=== PATIENT | female | born 1995 | race Caucasian/White ===

== ENCOUNTER 2025-01-20 07:59 | Inpatient (IN) ==
[2025-01-20] MEDS ORDERED: LABETALOL 20 MG/4 ML SYRINGE IVP PRN ×3 (08:07)
[2025-01-20] MEDS ORDERED: CARBOPROST TROMETHAMINE 250 MCG/ML VIAL IM PRN (08:07)
[2025-01-20] MEDS ORDERED: FAMOTIDINE 20 MG/2 ML VIAL IVP PRN (08:07)
[2025-01-20] MEDS ORDERED: OXYTOCIN 10 UNIT/ML VIAL IM PRN (08:07)
[2025-01-20] MEDS ORDERED: hydrALAZINE INJ 20 MG/ML VIAL IVP PRN (08:07)
[2025-01-20] MEDS ORDERED: SODIUM CHLORIDE FLUSH 0.9% 10 ML SYRINGE IVP PRN (08:07)
[2025-01-20] MEDS ORDERED: DOCUSATE SODIUM 100 MG CAPSULE PO PRN (08:07)
[2025-01-20] MEDS ORDERED: ONDANSETRON ODT 4 MG TABLET PO PRN (08:07)
[2025-01-20] MEDS ORDERED: ACETAMINOPHEN 500 MG TABLET PO PRN ×2 (08:07)
[2025-01-20] MEDS ORDERED: fentaNYL 100 MCG/2 ML VIAL IVP PRN (08:07)
[2025-01-20] MEDS ORDERED: TERBUTALINE 1 MG/ML VIAL SUBQ PRN (08:07)
[2025-01-20] MEDS ORDERED: METOCLOPRAMIDE 10 MG TABLET PO PRN (08:07)
[2025-01-20] MEDS ORDERED: METHYLERGONOVINE 0.2 MG/ML VIAL IM PRN (08:07)
[2025-01-20] MEDS ORDERED: CALCIUM CARBONATE CHEW 500 MG TABLET PO PRN (08:07)
--- NOTE | 2025-01-20 08:15 | HISTORY & PHYSICAL EXAMINATION ---
Admit History Smoking Status: Never smoker Other Maternal History Other Maternal History: HPI: This 29 yo @ 40+2 weeks by LMP and confirmed by 12+1 week ultrasound. Here today for term induction of labor at 40+2 weeks gestation. /-3 in clinic yesterday. Has had membrane sweep x2 without onset Reviewed that risks of induction and labor to include but are not limited to section, prolonged labor, vacuum extraction, episotomy, hemorrhage, and additional risks exist re: prolonged second stage related to extraction. Reviewed back up OBGYN is available for consultations, emergency interventions and transfer of care if indicted. She has been a patient of [facility] care for the duration of her which has remained uncomplicated. ROS: No Headache, visual changes or right upper quadrant abdominal pain. Denies significant N/V. Denies urinary urgency or dysuria. All other symptoms reviewed and were negative except per HPI. In the event of an emergency, accepts the administration of blood products. Recent BP: 134/72 Labs: H&H 12.9/37.8 PLT 158, serum Creatinine 0.5, AST 21, ALT 13 Last u/s EFW: 38% by anatomy scan Total maternal weight gain: 45# Added to OB Panel list: Yes Plans to attend group care: YES In the event of an emergency, ACCEPTS the administration of blood products - [place] sex Medical Hx: no significant Surgical Hx: shoulder surgery Social Hx: Monogamous with male partner Jono. Stopped drinking alcohol due to . Denies current use of tobacco, marijuana or other recreational drugs. Reports that she is safe in current relationship. Family Hx: Denies family history of congenital anomalies, Cystic Fibrosis or chromosomal abnormalities. Allergies: NKDA Medications: PNV LMP:04/13/2024 FATIMAH by LMP: 01/18/2025 U/S: @ 12.1wks c/w LMP dating (FATIMAH by U/S 01/20/2025) Final FATIMAH: 01/18/2025 Pre- weight: 213lb BMI: 30.6 Blood type: A NEG Rhogam given 10/26/2024 Antibody screen: Negative CBC: PLT 202 HCT 38.2 HGB 12.8 Rubella: Immune VZV: Immune HBsAg: Negative HepC: NR RPR/AB-EIA: NR HIV: NR Flu: 12/23/2024 COVID: declines PAP: 05/2023- normal per pt report GC/CT: 07/07/2024 Negative HSV: denies in self and partner Genetic Testing: QUAD- Negative FAS: WNL with exception of thickened nuchal fold (genetic screening negative) Placenta: Posterior Cord: 3VC HUMZA: 15.7cm EFW: 415g; 38%tile 50gm GCT: 68 TDAP:10/21 Breast Pump:10/21 2nd antibody screen:10/19-negative RHOGAM: 10/26/2024 3rd trimester H/H/PLT- 13.1/39.3/177 3rd trimester RPR- non reactive RSV 12/23/2024 GBS: POSITIVE Delivery plan: Desires unmedicated delivery, okay with saline lock, planning contraception Physical exam: Normocephalic, atraumatic Heart RRR w/o M/G/R Lungs CTAB Abdomen gravid, soft, nontender. EFW 3800 FHR baseline 135, moderate variability, + accelerations, no decelerations No regular contractions, soft uterine resting tone SVE 2-3/70/-3 01/20/2025, vertex, membranes intact Bilateral LE's no edema Mood is good. Assessment: 29 yo @ 40+2 weeks gestation by 12+1 wk U/S Term induction of labor FHR 135 Cat I GBS POSITIVE VTX by BSUS since 34 weeks Plan: Admit to [facility] for preinduction cervical ripening with induction of labor to follow Continuous monitoring, intermittent heart rate auscultation if criteria met. Will plan to start with misoprostol 50mcg BC q4 hours. Consider ROM 4 hours following initial administration of misoprostol Begin GBS prophalaxis (ampicillin) with ROM or onset of active labor Jacuzzi PRN. Nitrous oxide PRN. Epidural PRN Maternal Request. Anticipate . Meds/Allgy Home Medications Ambulatory Orders Medication Instructions Recorded Confirmed vits no.126-ferrous fum 1 tab PO DAILY 01/20/25 28 mg iron-folic acid 800 mcg tablet (Classic ) famotidine 20 mg tablet 20 mg PO DAILY PRN heartburn 01/20/25 01/20/25 Allergies Allergies Allergy/AdvReac Type Severity Reaction Status Date / Time No Known Drug Allergies Allergy Verified 01/20/25 09:45 [facility] Active Problems All Active Problems (Updated 01/20/25 @ 08:11 by ROBERTA Yu) Postmaturity , 40-42 weeks gestation (Acute) Normal in second trimester (Acute) Normal first confirmed (Acute) Encounter for other specified screening (Acute) Encounter for supervision of normal , unspecified, first trimester (Acute) Positive test (Acute) Surgical History Surgical History (Updated 06/23/24 @ 14:48 by Johnna Eli RN) H/O shoulder surgery 03/28/2018-Left labrum repair Social History Social History (Updated 11/13/24 @ 12:48 by ROBERTA Yu) Smoking Status: Never smoker Second hand tobacco smoke exposure: No Do you dip or chew tobacco?: No Do you vape?: No Living arrangement: At home Level: Independent ETOH Use: None Substance Use: denies use Are you sexually active?: Yes Occupation - Current: [employer] Service: Yes Dates of Service: Current Plan for Labor Plan For Labor I expect patient to be DC'd or transferred within 96 hours.: Yes Conclusion/Plan Lab Results 01/20/25 08:30 01/20/25 08:30
[2025-01-20 09:26] LABS: HCT - HEMATOCRIT 37.8 % (37.0-47.0); HGB - HEMOGLOBIN 12.9 g/dL (12.0-16.0); MEAN PLATELET VOLUME 9.5 fL (7.9-10.8); NRBC ABSOLUTE COUNT (AUTO) 0.00 x10^3/uL; NUCLEATED RED BLOOD CELLS AUTO 0.0 /100WBC; PLT - PLATELET COUNT 158 10^3/uL (130-450); RED CELL DISTRIBUTION WIDTH 13.0 % (12.0-15.0)
[2025-01-20 09:45] LABS: ALT ALANINE AMINOTRANSFERASE 13.0 IU/L (10-60); AST ASPARTATE AMINOTRANSFERASE 21.0 IU/L (10-42); BUN - BLOOD UREA NITROGEN 9.0 mg/dL (6-20); CARBON DIOXIDE - CO2 21.0 mmol/L (21-32); CREATININE 0.5 mg/dL (0.6-1.3); GFR - MDRD 148.0 (>89)
--- NOTE | 2025-01-20 12:25 | PHARMACY PROGRESS NOTE ---
Best Possible Medication History Admit Date and Time: 01/20/25 0808 Home Medications Medication Instructions Recorded Confirmed Type vits no.126-ferrous fum 1 tab PO DAILY 01/20/25 History 28 mg iron-folic acid 800 mcg tablet (Classic ) famotidine 20 mg tablet 20 mg PO DAILY PRN heartburn 01/20/25 01/20/25 History Processed by: Nursing (Patient's nurse kindly asked patient medication questions and preferred pharmacy) Medications reviewed in ED?: No Medication History completed: Yes Patient Interview: Completed Secondary Source(s): Insurance records [facility] Statement: As the person ultimately responsible for medication therapy, providers are able to order a medication from an existing home medication list in [facility] via the "Reconcile Routine" prior to Confirmation of that medication by academic support director. Such practice is discouraged except when the physician, in their clinical judgment, deems that a medical need exists for a medication without regard to previous use.
[2025-01-20] MEDS: LACTATED RINGERS 1,000 ML IV SCH (15:34)
[2025-01-20] MEDS: AMPICILLIN 2 GM in SODIUM CHLORIDE 0.9% MINIBAG 100 ML IV ONE (15:38)
[2025-01-20] MEDS: SODIUM CHLORIDE FLUSH 0.9% 10 ML SYRINGE IVP SCH (15:39)
--- NOTE | 2025-01-20 17:40 | PROVIDER PROGRESS NOTE ---
Subjective Subjective Subjective: S: In the tub with supportive who came prepared with swim trunks. Increasing discomfort with contractions. Breathing through contractions well. Tolerating position changes, coping well, understands situation after our discussions, feels well informed. O: FHR baseline 130, moderate variability, + accels, very intermittent variables. Overall reassuring with moderate variability maintained throughout. Contractions began to intensify following AROM at 1501. SVE 3.5/80/-2. Vertex. AROM @ 1501 today. Antibiotics started shortly after. S/p 2 doses 50mcg BC misoprostol A: 29yo @ 40+2wks gestation by LMP c/w 12wk U/S Elective IOL Overall FHR Category I and very reassuring tracing GBS positive Rh Neg P: Continue to monitor contractions and FHR. Now 4 hours following last dose of misoprostol. Continue q 4 hours ampicillin. SVE as indicated and prior to initiating pitocin. If contractions space out or seem to decrease in intensity, I have asked that the nursing team call me for a team discussion of pitocin augmentation. Continuous monitoring following 30 minute break from EFM. Epidural per maternal request. Encourage movement in room Anticipate . Current Medications Current Medications Current Medications: Current Medications Generic Name Dose Route Start Last Admin Trade Name Freq PRN Reason Stop Dose Admin Acetaminophen 1,000 mg 01/20/25 08:07 Acetaminophen 500 Mg Tablet PO Q8H PRN Mild Pain or Fever>38C(100.4F) Acetaminophen 1,000 mg 01/20/25 08:07 Acetaminophen 500 Mg Tablet PO Q8HR PRN Mild Pain or Fever>38C(100.4F) Calcium Carbonate/Glycine 1,000 mg 01/20/25 08:07 Calcium Carbonate Chew 500 Mg Tablet PO Q6HR PRN Heartburn Carboprost Tromethamine 250 mcg 01/20/25 08:07 Carboprost Tromethamine 250 Mcg/Ml Vial IM .ONCE PRN Hemorrhage Diphenhydramine HCl 25 mg 01/20/25 08:07 Diphenhydramine Inj 50 Mg/Ml Vial IVP Q6H PRN Allergy Symptoms Docusate Sodium 200 mg 01/20/25 08:07 Docusate Sodium 100 Mg Capsule PO BID PRN Constipation Famotidine 20 mg 01/20/25 08:07 Famotidine 20 Mg/2 Ml Vial IVP DAILY PRN acid reflux Famotidine 20 mg 10/29/25 15:20 Famotidine 20 Mg Tablet PO DAILY PRN Heartburn Fentanyl 50 mcg 01/20/25 08:07 Fentanyl 100 Mcg/2 Ml Vial IVP Q1H PRN Severe Pain (score 7-10) Hydralazine HCl 5 - 10 mg 01/20/25 08:07 Hydralazine Inj 20 Mg/Ml Vial IVP Q20M PRN SBP> or= 160 OR DBP> or= 110 Protocol Lactated Ringer's 500 mls @ 999 mls/hr 01/20/25 08:07 Lr IV PRN PRN PER PHYSICIAN ORDER Oxytocin/Sodium Chloride 500 mls @ 999 mls/hr 01/20/25 08:07 Pitocin/Sodium Chloride IV PRN PRN POST- HEMORR PREVENTION Protocol 999 MILLIUNIT/MIN Tranexamic Acid 1,000 mg in 100 mls @ 600 mls/hr 01/20/25 08:07 Tranexamic 1,000 Mg/100ml-Nacl IV Q30M PRN EBL >1200mL and within 3hr Lactated Ringer's 1,000 mls @ 125 mls/hr 01/20/25 09:00 01/20/25 16:43 Lr IV 0 mls/hr .Q8H JUDD Infusion Ampicillin Sodium 1 gm/ Sodium 100 mls @ 200 mls/hr 01/20/25 20:00 Chloride IV Q4H JUDD Labetalol HCl 20 mg 01/20/25 08:07 Labetalol 20 Mg/4 Ml Syringe IVP .ONCE PRN SBP> or= 160 OR DBP> or= 110 Protocol Labetalol HCl 20 - 80 mg 01/20/25 08:07 Labetalol 20 Mg/4 Ml Syringe IVP Q10M PRN SBP> or= 160 OR DBP> or= 110 Protocol Labetalol HCl 20 - 40 mg 01/20/25 08:07 Labetalol 20 Mg/4 Ml Syringe IVP Q10M PRN SBP> or= 160 OR DBP> or= 110 Protocol Lidocaine HCl 20 ml 01/20/25 08:07 Lidocaine 1% 20 Ml Mdv ID 01/23/25 08:08 .ONCE PRN PERINEAL REPAIR Methylergonovine Maleate 0.2 mg 01/20/25 08:07 Methylergonovine 0.2 Mg/Ml Vial IM .ONCE PRN Hemorrhage Metoclopramide HCl 5 mg 01/20/25 08:07 Metoclopramide 10 Mg Tablet PO Q6HR PRN Nausea / Vomiting Misoprostol 600 mcg 01/20/25 08:07 Misoprostol 200 Mcg Tablet BC .ONCE PRN Hemorrhage Misoprostol 800 mcg 01/20/25 08:07 Misoprostol 200 Mcg Tablet MI .ONCE PRN Hemorrhage Misoprostol 50 mcg 01/20/25 09:00 01/20/25 13:16 Misoprostol 100 Mcg Tablet BC 50 mcg Q4H JUDD Administration Nifedipine 10 - 20 mg 01/20/25 08:07 Nifedipine 10 Mg Capsule PO Q20M PRN SBP> or= 160 OR DBP> or= 110 Protocol Ondansetron HCl 4 mg 01/20/25 08:07 Ondansetron Odt 4 Mg Tablet PO Q4HR PRN Nausea / Vomiting Oxytocin 10 unit 01/20/25 08:07 Oxytocin 10 Unit/Ml Vial IM .ONCE PRN Step One if no IV access. Sodium Chloride 10 ml 01/20/25 09:00 01/20/25 16:45 Sodium Chloride Flush 0.9% 10 Ml Syringe IVP 10 ml Q8H JUDD Administration Sodium Chloride 10 ml 01/20/25 08:07 Sodium Chloride Flush 0.9% 10 Ml Syringe IVP PRN PRN NEEDED PER PROVIDER ORDERS Terbutaline Sulfate 0.25 mg 01/20/25 08:07 Terbutaline 1 Mg/Ml Vial SUBQ .ONCE PRN Tachystole Objective Vital Signs/Intake & Output Intake & Output: Intake & Output 01/17/25 01/18/25 01/19/25 01/20/25 23:59 23:59 23:59 23:59 Intake Total 700 / 700 Balance 700 / 700 Weight (kg) 568 lb 12.682 oz Lab Results 01/20/25 08:30 01/20/25 08:30 Other Labs: Lab Results x24hrs 01/20/25 Range/Units 08:30 WBC 7.9 (4.8-10.8) x10^3/uL RBC 4.18 L (4.20-5.40) 10^6/uL Hgb 12.9 (12.0-16.0) g/dL Hct 37.8 (37.0-47.0) % MCV 90.4 (81.0-99.0) fL MCH 30.9 (27.0-31.0) pg MCHC 34.1 (32.0-36.0) g/dL RDW 13.0 (12.0-15.0) % Plt Count 158 (130-450) 10^3/uL MPV 9.5 (7.9-10.8) fL Neut # (Auto) 5.5 (1.5-6.6) 10^3/uL Lymph # (Auto) 1.6 (1.5-3.5) 10^3/uL [place] # (Auto) 0.7 (0.0-1.0) 10^3/uL Eos # (Auto) 0.1 (0.0-0.7) 10^3/uL Baso # (Auto) 0.0 (0.0-0.1) 10^3/uL Absolute Nucleated RBC 0.00 x10^3/uL Nucleated RBC % 0.0 /100WBC Sodium 135 (135-145) mmol/L Potassium 3.8 (3.5-4.5) mmol/L Chloride 108 (101-111) mmol/L Carbon Dioxide 21 (21-32) mmol/L Anion Gap 6.0 (6-13) BUN 9 (6-20) mg/dL Creatinine 0.5 L (0.6-1.3) mg/dL Estimated GFR (MDRD) 148 (>89) Glucose 113 H (74-104) mg/dL Calcium 8.9 (8.5-10.3) mg/dL Total Bilirubin 0.4 (0.2-1.0) mg/dL AST 21 (10-42) IU/L ALT 13 (10-60) IU/L Alkaline Phosphatase 112 (42-121) IU/L Total Protein 5.8 L (6.4-8.9) g/dL Albumin 3.3 (3.2-5.5) g/dL Globulin 2.5 (2.1-4.2) g/dL Albumin/Globulin Ratio 1.3 (1.0-2.2) Blood Type A NEGATIVE Antibody Screen NEGATIVE
[2025-01-20] MEDS: LACTATED RINGERS 1,000 ML IV PRN (18:02)
[2025-01-20] MEDS ORDERED: LIDOCAINE 2%-EPI 1:100000 20 ML MDV ONE (18:58)
[2025-01-20] MEDS ORDERED: ROPIVACAINE 0.2% 200 MG/100 ML BAG EP ONE (18:58)
[2025-01-20] MEDS ORDERED: ePHEDrine 50 MG/ML VIAL IVP ONE (19:32)
[2025-01-20] MEDS ORDERED: ROPIVACAINE 0.2% 200 MG/100 ML BAG EP PRN (19:35)
[2025-01-20] MEDS ORDERED: NALOXONE 0.4 MG/ML VIAL IVP PRN (19:35)
[2025-01-20] MEDS ORDERED: ONDANSETRON 4 MG/2 ML VIAL IVP PRN (19:35)
--- NOTE | 2025-01-20 19:37 | ANESTHESIA PROCEDURE NOTE ---
Pre-Anesthesia VS, & Labs Diagnosis Surgical Diagnosis:: Active labor Procedure Procedure: Vaginal delivery Vitals Vital Signs: Temp Pulse Resp BP 36.8 C 97 14 134/72 H 01/20/25 08:15 01/20/25 08:15 01/20/25 08:15 01/20/25 08:15 NPO NPO: Other (clear liquids while in labor) Last Fluid Intake: clear liquids Is Patient ?: Yes Lab Results Current Lab Results: Laboratory Tests 01/20/25 08:30: WBC 7.9, RBC 4.18 L, Hgb 12.9, Hct 37.8, MCV 90.4, MCH 30.9, MCHC 34.1, RDW 13.0, Plt Count 158, MPV 9.5, Neut # (Auto) 5.5, Lymph # (Auto) 1.6, [place] # (Auto) 0.7, Eos # (Auto) 0.1, Baso # (Auto) 0.0, Absolute Nucleated RBC 0.00, Nucleated RBC % 0.0, Sodium 135, Potassium 3.8, Chloride 108, Carbon Dioxide 21, Anion Gap 6.0, BUN 9, Creatinine 0.5 L, Estimated GFR (MDRD) 148, G lucose 113 H, Calcium 8.9, Total Bilirubin 0.4, AST 21, ALT 13, Alkaline Phosphatase 112, Total Protein 5.8 L, Albumin 3.3, Globulin 2.5, Albumin/Globulin Ratio 1.3, Blood Type A NEGATIVE, Antibody Screen NEGATIVE Lab results reviewed: Yes 01/20/25 08:30 01/20/25 08:30 Meds/Allgy Home Medications Ambulatory Orders Medication Instructions Recorded Confirmed vits no.126-ferrous fum 1 tab PO DAILY 01/20/25 28 mg iron-folic acid 800 mcg tablet (Classic ) famotidine 20 mg tablet 20 mg PO DAILY PRN heartburn 01/20/25 01/20/25 Allergies Allergies Allergy/AdvReac Type Severity Reaction Status Date / Time No Known Drug Allergies Allergy Verified 01/20/25 09:45 PFSH Active Problems All Active Problems Postmaturity , 40-42 weeks gestation (Acute) Normal in second trimester (Acute) Normal first confirmed (Acute) Encounter for other specified screening (Acute) Encounter for supervision of normal , unspecified, first trimester (Acute) Positive test (Acute) Surgical History Surgical History H/O shoulder surgery 03/28/2018-Left labrum repair Social History Social History (Updated 11/13/24 @ 12:48 by ROBERTA Yu) Smoking Status: Never smoker Second hand tobacco smoke exposure: No Do you dip or chew tobacco?: No Do you vape?: No Living arrangement: At home Level: Independent ETOH Use: None Substance Use: denies use Are you sexually active?: Yes Occupation - Current: [id number] Service: Yes Dates of Service: Current POLST POLST CPR Status: Attempt Resuscitation (CPR) Level of Medical Intervention: Full Treatment Anesthesia Exam (Expanded) Exam General: Alert, Oriented x3 and Cooperative Dental: WNL Mouth Openin Fingerbreadth Neck Mobility: Normal Mallampati classification: II Thyromental Distance: 4-6 cm Plan Plan Anesthesia Type: Epidural Consent for Procedure(s) Verified and Reviewed: Yes Code Status: Attempt Resuscitation ASA Classification ASA classification: 2-Mild systemic disease Is this case an emergency?: No
[2025-01-20] MEDS: AMPICILLIN 1 GM in SODIUM CHLORIDE 0.9% MINIBAG 100 ML IV SCH (19:38)
[2025-01-20] MEDS: ePHEDrine 50 MG/ML VIAL IVP PRN ×2 (19:40→20:11)
--- NOTE | 2025-01-20 21:46 | PROVIDER PROGRESS NOTE ---
Labor Progress Note Labor Progress Note Labor Progress Note/Additional Text: S: Now very comfortable with her epidural. Tried the nitrous first but it made her nauseated and dizzy. Her and mother are supportive at bedside. Her father is resting in the waiting room. Her parents are very respectful of her privacy. O: FHR 125-130. Category I-II. Some more significant decelerations that resolved with return to FHR baseline. SVE 8/90/0, vertex. A: 29yo @ 40+2 wks gestation by 12 wk U/S Active labor Postdates GBS positive P: Anesthesia placed epidural and worked to help resolve hypotension. Continous monitoring Continue ampicillin for GBS prophylaxis per protocol. Now adequately treated. Nursing team very active in moving patient both for positional activity as well as FHR recovery. Anticipate .
[2025-01-20] MEDS: FAMOTIDINE 20 MG TABLET PO PRN (23:31)
[2025-01-21] MEDS: TRANEXAMIC ACID IN NACL 1,000 MG/100 ML BAG IV PRN (00:21)
[2025-01-21] MEDS: OXYTOCIN/SODIUM CHLORIDE 500 ML IV PRN (00:21)
--- NOTE | 2025-01-21 01:13 | DELIVERY NOTE ---
OB Labor and Delivery Note Delivery Outcome Delivery Date: 01/21/25 Delivery Comments (Free Text/Narrative) Delivery Comments (Free Text/Narrative): This 29 -year-old, G1 P 0 @ 40+2 weeks gestation by 12 week ultrasound/ LMP presented @ 0800 this morning for term induction of labor in stable condition. Cervical exam was deferred as she had not been latonya since her last cervical exam in the clinic the previous day and was 2-3/70/-2, and Vertex presentation by BSUS. GBS positive, adequately treated. Received two doses of 50mcg of misoprostol x2. FHR pattern demonstrated 125-130 baseline in a category I-II prior to second stage. Normal labor course. Epidural placed upon maternal request. AROM occurred 01/20/2025 @1501. She then progressed to complete/complete @ 23:33 and second stage began. : Normal spontaneous vaginal delivery of a viable male on 01/21/2025 @ 0017. No nuchal cord. The was placed on maternal abdomen, stimulated, dried and placed skin to skin. Apgars 8 & 9 @ 1 & 5 minutes. The umbilical cord was allowed to stop pulsating at which time it was doubly clamped by delivering provider and cut by FOB. 3VC. Cord blood was obtained. Fundal massage and gently cord traction applied for active management of the third stage, placenta delivered spontaneously and intact and appeared normal @00:30 EBL 350. Placenta was not sent to pathology. Pitocin administered via IV for hemostasis and allowed to run freely. Her lacereration was bleeding briskly so TXA was hung prior to placenta delivery. Uterine massage was performed until uterus was deemed firm. weight pending at this time. Inspection of the perineum noted a second degree midline laceration. The laceration was repaired under epidural anesthesia with running 3-0 vicryl rapide, repaired in standards fashion under sterile conditions. Upon re- inspection the patient was hemostatic. Uterus again massaged and found to be firm. Needle and sponge counts were correct. Uterine fundus firm and there is no excessive bleeding. The uterus was low lying with cervix visible through vaginal os with fundal assessment. Team discussion re supporting lower uterine segment with fundal assessments. Tissues well approximated. Skin to skin initiated. Family bonding well. Both mother and baby are in stable condition.
[2025-01-21] MEDS ORDERED: LABETALOL 5 MG/1 ML 20 ML MDV IVP PRN (01:22)
[2025-01-21] MEDS ORDERED: NALOXONE 0.4 MG/ML VIAL IVP PRN (01:22)
[2025-01-21] MEDS ORDERED: OXYTOCIN/SODIUM CHLORIDE 500 ML IV PRN (01:22)
[2025-01-21] MEDS ORDERED: SIMETHICONE CHEW 80 MG TABLET PO PRN (01:22)
[2025-01-21] MEDS ORDERED: LABETALOL 20 MG/4 ML SYRINGE IVP PRN ×2 (01:22)
[2025-01-21] MEDS ORDERED: hydrALAZINE INJ 20 MG/ML VIAL IVP PRN ×2 (01:22)
[2025-01-21] MEDS: IBUPROFEN 600 MG TABLET PO PRN (01:39)
[2025-01-21] MEDS: ACETAMINOPHEN 500 MG TABLET PO PRN (01:40)
[2025-01-21] MEDS: DOCUSATE SODIUM 100 MG CAPSULE PO SCH (08:45)
--- NOTE | 2025-01-21 09:03 | PROVIDER PROGRESS NOTE ---
Labor Progress Note Labor Progress Note Labor Progress Note/Additional Text: From 01/21/2025 @ 0830 Subjective: Patient reports she is doing well. Comfortable WITHOUT narcotic pain management Lochia appropriate. Denies heavy bleeding. Ambulating. Pelvic and abdominal pain well-controlled. Tolerating oral intake. Diet: Regular. Voiding without difficulty. Passing flatus. Denies BM. Patient is bonding with baby in room Breast feeding going okay. Good support from nursing team. Denies feeling lightheaded, dizzy or excessively fatigued. Objective General: Alert, oriented, no apparent distress. Cardiovascular: No edema. Regular rate. Regular rhythm. Lungs: No increased work of breathing. Abdomen: Uterus firm. Below umbilicus. No guarding or rebound tenderness. Extremities: No pain on palpation. Distal pulses intact. Assessment and Plan 9 hours following s/p on 01/21/2025 @ 0017 viable male infant following elective IOL at 40+2 weeks gestation. Small second decree laceration with repair. . - Routine - Anticipate discharge tomorrow
--- NOTE | 2025-01-22 08:08 | Discharge Summary ---
Discharge Summary HPI History of Present Illness: Date of Admission: 01/20/2025 Date of Discharge: 01/22/2025 Diagnosis on admission: 29 yo @ 40+2 weeks gestation by 12+1 wk U/S Term induction of labor FHR 135 Cat I GBS POSITIVE VTX by BSUS since 34 weeks Diagnosis on Discharge 29 yo s/p 01/21/2025 @00:17 Second degree perineal laceration with repair weight 4,044g blood type A negative, rhogam NOT indicated Overall, unremarkable course. Physical exam: Normocephalic, atraumatic Normal uterine involution, FF below umbilicus small rubra bleeding Minimal perineal discomfort. Bilateral LE's no edema Mood is good. Brief History: This 29 -year-old, G1 P 0 @ 40+2 weeks gestation by 12 week ultrasound/ LMP presented @ 0800 this morning for term induction of labor in stable condition. GBS positive, adequately treated. Received two doses of 50mcg of misoprostol. FHR pattern demonstrated 125-130 baseline in a category I-II prior to second stage. Normal labor course. Epidural placed upon maternal request. AROM occurred 01/20/2025 @1501. She then progressed to complete/complete @ 23:33 and second stage began. Throughout her labor and delivery she was well supported by her , Jono and her parents (Mother staying through delivery). : Normal spontaneous vaginal delivery of a viable male infant on 01/21/2025 @ 0017. Baby "Bahena." No nuchal cord. The was placed on maternal abdomen, stimulated, dried and placed skin to skin. Apgars 8 & 9 @ 1 & 5 minutes. The umbilical cord was allowed to stop pulsating at which time it was doubly clamped by delivering provider and cut by FOB. 3VC. Cord blood was obtained. Fundal massage and gently cord traction applied for active management of the third stage, placenta delivered spontaneously and intact and appeared normal @00:30. EBL 350. Placenta was not sent to pathology. Pitocin administered via IV for hemostasis and allowed to run freely. Her laceration was bleeding briskly so TXA was hung prior to placenta delivery. Uterine massage was performed until uterus was deemed firm. weight 4,044g. Inspection of the perineum noted a second degree midline laceration. The laceration was repaired under epidural anesthesia with running 3-0 vicryl rapide, repaired in standards fashion under sterile conditions. She has been doing well in her course. She is ambulating and tolerating a regular diet. She is urinating without difficulty and her lochia is normal. Her pain is well controlled without narcotic management. She will be discharged to home today on day #2 and encouraged IBU, tylenol and stool softeners PRN. She intends to follow up with [facility] in 1 week for telehealth. Telehealth appointment scheduled for 01/28/2025 @12:30 with myself. She has been given precautions to call if she has any new or worsening sx such as fevers, chills, abdominal pain, increasing bleeding, or foul smelling vaginal lochia. preeclamptic precautions reviewed as well. It has been an absolute pleasure to care for Lucia and her family during this and her inpatient course. VZV: immune Rubella: Immune RH: A negative/ Baby blood type A negative. Rhogam NOT indicated ALLERGIES Allergies Allergy/AdvReac Type Severity Reaction Status Date / Time No Known Drug Allergies Allergy Verified 01/20/25 09:45 MEDICATIONS Ambulatory Orders Medication Instructions Recorded Confirmed vits no.126-ferrous fum 1 tab PO DAILY 01/20/25 28 mg iron-folic acid 800 mcg tablet (Classic ) famotidine 20 mg tablet 20 mg PO DAILY PRN heartburn 01/20/25 01/20/25 PHYSICAL EXAM AT DISCHARGE Vital Signs: Vital Signs x48h Temp Pulse Resp BP Pulse Ox 01/22/25 07:33 36.7 C 66 17 118/67 100 01/22/25 06:23 36.7 C 70 16 126/68 99 01/22/25 01:32 36.7 C 68 16 132/72 H 100 LABS 01/20/25 08:30 01/20/25 08:30 Discharge Plan Discharge Patient Disposition: Home, Self Care Condition: Good Medically Cleared Date:: 01/22/25 Prescriptions: Continued famotidine 20 mg tablet 20 mg PO DAILY PRN (Reason: heartburn) Classic 28 mg iron- 800 mcg tablet 1 tab PO DAILY Activity Restrictions: No Restrictions Diet: Regular Print Language: Marshallese Patient Instructions: How to Breastfeed, Holds, Expressing Your Milk, The Breast, Breastfeed Common Questions, The Benefits of Breastmilk, - Latch On, Plugged Milk Ducts Vitals documented within 30 minutes of discharge?: Yes
[2025-01-22 10:57] VITALS: BP 115/69; TEMP 97.7; O2SAT 97
--- NOTE | 2025-01-22 11:26 | Labor Flowsheet ---
Labor Flowsheet Datetime Report Generated by CPN: 01/22/2025 11:26 Datetime: 01/22/2025 10:42 VITAL SIGNS NBP Sys/Chitra/Mean (mmHg): 115 : 69 : 80 Pulse: 86 Datetime: 01/21/2025 13:15 SpO2 (%): 94 Datetime: 01/21/2025 00:46 Stage of : Recovery Anesthesia Comments: ESPINOZA pump stopped Datetime: 01/21/2025 00:17 UTERINE ACTIVITY Monitor Mode: Palpation Frequency (min): 2-3 Quality: Strong Duration (sec): 60-90 Pattern: Normal: <= 5 Contractions in 10 Minutes Resting Tone (Palpate): Relaxed FHR Baseline Changes: Bradycardia Comments: terminal bradycardia with delivery to 85bpm Patient Care Comments: CNM _ RNs remain cont at bedside Datetime: 01/21/2025 00:15 ASSESSMENT A Monitor Mode: External US FHR Baseline Rate : 100 STAGE 2 Pushing: Coached on Pushing Pushing Progress: with Pushing Datetime: 01/21/2025 00:10 Variability: Moderate 6-25 bpm Decelerations: Variable Datetime: 01/21/2025 00:05 Accelerations: 15X15 Datetime: 01/21/2025 00:01 LaborFlag: Labor Datetime: 01/21/2025 00:00 Contraction Comments: difficulty tracing ctx pattern while pt pushing Monitor Interventions for FHR: Ultrasound Adjusted Category: Category II Pushing Position: Pushing Lithotomy Datetime: 01/20/2025 23:58 Temperature (C): 36.9 Datetime: 01/20/2025 23:33 VAGINAL EXAM Dilatation (cm): 10.0 Effacement (%): 100 Station: 2 Exam by: CNAriel Espinosa, K Vaginal Exam Comments: cervix reduced with trial pushes Datetime: 01/20/2025 23:23 Patient Position/Activity: Left Lateral Datetime: 01/20/2025 22:44 Monitor Interventions for UA: [place] Adjusted Datetime: 01/20/2025 20:56 I/O Interventions: [place] Cath Inserted Datetime: 01/20/2025 20:23 Anesthesia Interventions Other: Ephedrine Datetime: 01/20/2025 19:13 Epidural Procedure Other: Delivery Dose Datetime: 01/20/2025 19:10 Epidural Procedure: Test Dose Datetime: 01/20/2025 19:06 PROCEDURE TIME OUT Procedure Verify: Correct Patient Identity; Correct Side and Site are Marked; Accurate Procedure Consent Form; Agreement on Procedure to be Done; Correct Patient Position; Relevant Images and Results are Properly Labeled and Displayed ANESTHESIA Anesthesia Plans: Epidural Datetime: 01/20/2025 19:02 Epidural Positioning: Sitting Datetime: 01/20/2025 18:33 Pain Coping: Breathing Through Contractions Pain Assessment Comments: Nitrous oxide use education given to patient and family, understanding verbalized by all Comfort Measures: Breathing/Relaxation Datetime: 01/20/2025 18:08 Communication Comments: TYRA Marie updated on drop in pt BP. 300mL LR bolus started. BP resolved and pt states she is feeling better. Pt states she is feeling some vaginal and rectal pressure with and a little bit after cxtns. VO per TYRA Marie RN can perform SVE if indicated or pt request. Datetime: 01/20/2025 17:23 Provider Reviewed Strip: Yes COMMUNICATION Communication: RN at Bedside; RN Reviewed Strip; Provider at Bedside Datetime: 01/20/2025 15:46 Temperature Route: Oral Datetime: 01/20/2025 15:01 Membranes Rupture Method: Artificial Amniotic Fluid Color: Clear Amniotic Fluid Amount: Small Amniotic Fluid Odor: Normal Pool: Positive Datetime: 01/20/2025 13:30 Pitocin Checklist: At Least 1 Acceleration of 15 bpm x 15 Seconds in 30 Minutes or Adequate Variability; No More than 1 Late Deceleration Occurred in Past 30 Minutes; No More than 2 Variable Decelerations > 60 Seconds in Duration and decreasing >60 bpm in 30 minutes; No More than 5 Uterine Contractions in 10 Minutes for any 20 Minute Interval; Uterus Palpates Soft between Contractions Datetime: 01/20/2025 13:16 MEDICATIONS Cervical Ripening Agents: Cytotec @ Medication Comments: administered BC Datetime: 01/20/2025 09:49 Membranes Ruptured Date/Time: 01/20/2025 15:01 Datetime: 01/20/2025 08:30 PATIENT CARE IV/Blood Work: IV Started; Labs Drawn with IV Start Datetime: 01/20/2025 08:16 Respirations: 14 PAIN Pain Scale: 0 Pain Presence: None/Denies Pain Type: N/A
== END 2025-01-22 10:45 | disposition home or self-care (01) | DRG 805 ==
LOC: WFO 07:59 → FBP 08:03
PROVIDERS: ADMIT Nurse Practitioner; ATTEND Nurse Practitioner